=== PATIENT | male | born 1955 | race Caucasian/White ===

== ENCOUNTER → 2019-10-31 10:27 | Outpatient (BNVA) | payer MEDICARE, OTHER, SELFPAY | PROVIDERS: PCP Student in an Organized Health Care Education/Training Program; Visit Provider Specialist | DX: R29.90 Unspecified symptoms and signs involving the nervous system (principal); R20.0 Anesthesia of skin; R20.2 Paresthesia of skin | CPT/HCPCS: 95907 ==